=== PATIENT | female | born 1965 | race Caucasian/White ===

== ENCOUNTER → 2021-08-04 | Outpatient (REF) | payer OTHER, MEDICAID ==
[2021-08-04 14:08] LABS: BACTERIA, URINE AUTO 1+ (NEGATIVE); MUCUS, URINE SMALL (NEGATIVE); RBC, URINE AUTO 6 /HPF (0-3); SQUAMOUS EPITHELIAL CELL UR AU 0 /HPF (0-6); WBC, URINE AUTO TNTC /HPF (0-3)
== END ==
LOC: M SMT 13:04
PROVIDERS: ATTEND Specialist
DX: N30.90 Cystitis, unspecified without hematuria (principal); N76.1 Subacute and chronic vaginitis